=== PATIENT | female | born 1990 | race Caucasian/White ===

== ENCOUNTER 2018-01-15 06:59 | Emergency (ER) | payer OTHER ==
[~2018-01-15] VITALS: Ht 170.2 cm; Wt 61.0 kg
[2018-01-15] MEDS ORDERED: CLINDAMYCIN 600 MG in DEXTROSE 5% WATER 50 ML IV SCH (10:30)
[2018-01-15] MEDS ORDERED: SODIUM CHLORIDE 0.9% 1000ML BAG (SEPSIS BOLUS) IV ONE (10:30)
[2018-01-15] MEDS ORDERED: ACETAMINOPHEN 325MG TABLET PO ONE ×2 (10:30→22:15)
[2018-01-15 10:45] LABS: CLARITY URINE CLEAR (CLEAR); COLOR URINE YELLOW (YELLOW); KETONES URINE 4+ (NEGATIVE); LEUKOCYTE ESTERASE URINE NEGATIVE (NEGATIVE); NITRITE URINE NEGATIVE (NEGATIVE); OCCULT BLOOD URINE 1+ (NEGATIVE); PROTEIN URINE NEGATIVE (NEGATIVE); SPECIFIC GRAVITY URINE 1.015 (1.005-1.030); UROBILINOGEN URINE 0.2 E.U./dL (0.2-1.0)
[2018-01-15 11:16] LABS: BASOPHILS % 0.3 % (0.0-2.0); HEMATOCRIT. 33.7 % (36.0-48.0); HEMOGLOBIN. 11.7 g/dL (12.0-16.0); LYMPHOCYTES % 17.1 % (20.0-50.0); MEAN CORPUSCULAR HEMOGLOBIN 29.6 pg (28.0-32.0); MEAN CORPUSCULAR VOLUME 85.2 fL (81.0-99.0); MEAN PLATELET VOLUME 8.8 fl (7.4-10.4); MONOCYTES % 3.1 % (2.0-8.0); NEUTROPHILS % 79.5 % (40.0-76.0); PLATELET 199 x1000/uL (130-400); RED BLOOD CELL COUNT 3.96 mill/uL (4.2-5.4); RED CELL DISTRIBUTION WIDTH 12.7 % (11.6-14.6)
[2018-01-15 11:17] LABS: CHLORIDE 100 mEq/L (98-107)
[2018-01-15 12:14] LABS: MONOTEST NEGATIVE (NEGATIVE)
[2018-01-15 13:09] LABS: PARTIAL THROMBOPLASTIN TIME 28.5 sec (23.4-31.0); PROTHROMBIN TIME 10.8 sec (9.4-11.6)
[2018-01-15] MEDS ORDERED: CLINDAMYCIN 600MG PREMIX 50 ML IV NR (14:00)
[2018-01-15 20:20] VITALS: BP 117/69
== END 2018-01-15 22:40 | disposition short-term general hospital (02) ==
LOC: ER 06:59
DX: O20.0 Threatened abortion (principal); A41.9 Sepsis, unspecified organism; E86.0 Dehydration; O99.281 Endocrine, nutritional and metabolic diseases complicating pregnancy, first trimester; J02.9 Acute pharyngitis, unspecified; O99.511 Diseases of the respiratory system complicating pregnancy, first trimester; O26.891 Other specified pregnancy related conditions, first trimester; Z3A.11 11 weeks gestation of pregnancy; Z88.0 Allergy status to penicillin; Z88.2 Allergy status to sulfonamides
CPT/HCPCS: 36415; 70540; 76801; 76817; 80053; 81003; 81025; 83605; 84702; 85025; 85610; 85730; 86308; 86850; 86900; 86901; 87040; 87070; 87086; 87430; 87804; 96361; 96365; 99291; J3490; J7030; Z7610; J7060